=== PATIENT | female | born 1965 | race Caucasian/White ===

== ENCOUNTER 2022-09-01 09:15 | Emergency (ER) | payer OTHER ==
[~2022-09-01] VITALS: Ht 167.6 cm; Wt 90.3 kg
[~2022-09-01 09:15] MED LIST: DURICEF 500 MG CAPSULE PO; OXYC1TAB9 PO
== END 2022-09-01 13:08 | disposition home or self-care (01) ==
LOC: ER 09:15
DX: M51.26 Other intervertebral disc displacement, lumbar region (principal); I10 Essential (primary) hypertension; E88.81 Metabolic syndrome and other insulin resistance; E11.9 Type 2 diabetes mellitus without complications; E78.00 Pure hypercholesterolemia, unspecified